=== PATIENT | male | born 1945 | race Caucasian/White ===

== ENCOUNTER 2023-05-21 10:45 | Inpatient (IN) | payer OTHER, MEDICARE ==
[2023-05-21] MEDS ORDERED: ONDANSETRON 4 MG/2 ML VIAL ONE (11:30)
[2023-05-21] MEDS ORDERED: MORPHINE 4 MG/ML SYR ONE (11:30)
[2023-05-21 11:45] LABS: Absolute Eosinophils 0.2 K/uL (0-0.5); Absolute Monocytes 1.4 K/uL (0.1-1.3); Absolute Neutrophil 9.8 K/uL (1.8-8.0); Basophils % 0.3 % (0-1.3); Eosinophils % 1.3 % (0-4.4); Hematocrit 30.7 % (39.6-49.0); Lymphocytes % 8.3 % (15.3-44.8); MCH 31.3 pg (27.0-35.0); MCHC 32.6 g/dL (32.0-36.0); MPV 7.8 fL (7.6-11.3); Monocytes % 10.9 % (3.3-12.3); Neutrophils % 79.2 % (41.7-73.7); Platelets 223 thou/uL (152-406); RBC Red Blood Cell Count 3.19 M/uL (4.33-5.43); Red Cell Distribution Width 16.4 % (12.1-15.2)
[2023-05-21 11:55] LABS: PT Prothrombin Time 12.9 SECONDS (9.5-12.5); Protime INR 1.18
[2023-05-21 12:03] LABS: Albumin/Globulin Ratio 0.9 (1.1-1.8); Anion Gap 11.2 mEq/L (5.0-15.0); Bilirubin Total 0.7 mg/dL (0.2-1.0); Globulin 3.4 g/dL (2.3-3.5); Potassium 4.2 mEq/L (3.5-5.1); Protein, Total 6.4 g/dL (6.4-8.2)
[2023-05-21] MEDS ORDERED: FENTANYL CITR 100 MCG/2 ML ONE (12:30)
[2023-05-21] MEDS ORDERED: NA CHLORIDE 0.9% 1,000 ML ONE (12:31)
--- NOTE | 2023-05-21 13:57 | RAD REPORT ---
EXAM DESCRIPTION: CT - Abdomen Pelvis Wo Contrast - 05/21/2023 12:47 pm CLINICAL HISTORY: back pain, sacral wound COMPARISON: No comparisons TECHNIQUE: Thin cut axial CT imaging of the abdomen and pelvis was performed without IV contrast. Mu ltiplanar reformats were generated and reviewed. All CT scans are performed using dose optimization technique as appropriate and may include automated exposure control or mA/KV adjustment according to patient size. FINDINGS: Elevation of the left hemidiaphragm. Segmental left lower lobe opacification and other sub segmental dependent opacities in the left lingula and right lower lobe, favoring atelectasis. The liver, spleen, and pancreas show no suspicious findings. Gallbladder shows layering sludge and mi ldly hyperdense small stones. Bilateral renal parenchymal atrophic changes, without suspicious parenchymal findings within limits o f noncontrast technique. Vascular calcifications. Parapelvic left upper to interpolar cystic lesion m easuring 3.7 cm. No evidence of radiopaque calculi or hydroureteronephrosis. No dilated bowel loops or bowel wall thickening. No free air, free fluid or inflammatory stranding. N o suspicious mass or bulky lymphadenopathy. Small right inguinal hernia containing fat. The urinary b ladder is without significant finding. No acute bony findings. Endplate compression deformities throughout the lumbar spine and at T11 and T 12, without adjacent soft tissue edema, favored to be chronic. Tortuosity of the upper abdominal aorta. Tubular structures along the posterior margin of the upper a bdominal aorta left of midline above the level of the renal arteries, could relate to postsurgical ch anges. Advanced atherosclerotic calcifications also involving the proximal SMA. IVC filter in place. Mild fat stranding along the gluteal regions bilaterally with mild skin thickening on the right. No a ppreciable soft tissue gas or fluid collections. IMPRESSION: No acute intra-abdominal process. Layering sludge and mildly hyperdense small stones within the gallbladder. Likely chronic compression deformities of T11-L5. Mild fat stranding along the gluteal regions bilaterally of mild skin thickening on the right, may in dicate ongoing cellulitis. No soft tissue gas or appreciable fluid collections. Other incidental findings as above.
--- NOTE | 2023-05-21 14:34 | EDPHYS ---
Physician Documentation [facility] Name: Kamron Bhatti Age: 78 yrs Sex: Male : 1945 Arrival Date: 05/21/2023 Time: 10:45 Bed 2 Private MD: ED Physician Kobe Simmons HPI: 05/20 11:32 This 78 yrs old Male presents to ER via EMS with complaints of wound, back pain. rt 11:32 Patient presents to the ED with a wound to the right buttocks. States that has been in rt an electric chair for about 5 days. States that he has bleeding when he tries to transfer. Also reports back pain. Denies other acute complaints at this time, symptoms are moderate in severity, no other aggravating alleviating factors.. Historical: - Allergies: 11:00 No Known Allergies; nj1 - Immunization history:: Client reports receiving the 2nd dose of the Covid vaccine. - Infectious Disease History:: Denies. - Social history:: Smoking status: Patient denies any tobacco usage or history of. - Family history:: not pertinent. ROS: 11:32 Constitutional: Negative for fever, chills, and weight loss, Cardiovascular: Negative rt for chest pain, palpitations, and edema, Respiratory: Negative for shortness of breath, cough, wheezing, and pleuritic chest pain, Abdomen/GI: Negative for abdominal pain, nausea, vomiting, diarrhea, and constipation, Neuro: Negative for headache, weakness, numbness, tingling, and seizure, 11:32 Back: Positive for pain at rest, pain with movement, 11:32 Skin: Positive for Wound, bleeding, Exam: 11:32 Constitutional: This is a well developed, well nourished patient who is awake, alert, rt and in no acute distress. Head/Face: Normocephalic, atraumatic. Chest/axilla: Normal chest wall appearance and motion. Nontender with no deformity. No lesions are appreciated. Cardiovascular: Regular rate and rhythm with a normal S1 and S2. No gallops, murmurs, or rubs. Normal PMI, no JVD. No pulse deficits. Respiratory: Lungs have equal breath sounds bilaterally, clear to auscultation and percussion. No rales, rhonchi or wheezes noted. No increased work of breathing, no retractions or nasal flaring. Abdomen/GI: Soft, non-tender, with normal bowel sounds. No distension or tympany. No guarding or rebound. No evidence of tenderness throughout. Neuro: Awake and alert, GCS 15, oriented to person, place, time, and situation. Cranial nerves II-XII grossly intact. Motor strength 5/5 in all extremities. Sensory grossly intact. Cerebellar exam normal. Normal gait. 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 11:32 Skin: Stage I-II decubitus wound on the right buttock, correlation noted, scant amount of bleeding. It is erythematous, warm to the touch.. Vital Signs: 10:57 BP 109 / 53; Pulse 63; Resp 18; Temp 97.8(O); Pulse Ox 100% on R/A; Weight 88.9 kg (M); nj1 11:28 Pulse 88; Pulse Ox 100% ; nj1 11:42 BP 96 / 48; Pulse 92; Resp 18; Pulse Ox 100% on R/A; nj1 13:07 BP 116 / 45; Pulse 80; Resp 18; Pulse Ox 100% ; Pain 6/10; nj1 13:08 Pain 6/10; nj1 14:15 BP 124 / 62; Pulse 89; Resp 17; Pulse Ox 98% on R/A; nj1 15:30 BP 122 / 89; Pulse 99; Resp 16; Pulse Ox 98% on R/A; nj1 13:07 Pain Scale: Adult nj1 13:08 Pain Scale: Adult nj1 MDM: 10:51 Patient medically screened. rt 16:09 Differential Diagnosis Cellulitis, abscess, electrolyte disturbance. Data reviewed: rt vital signs, nurses notes, lab test result(s), radiologic studies. Consideration of Admission/Observation Patient was admitted/placed on observation. Management of patient was discussed with the following: Hospitalist: Agrees to admit. I considered the following discharge prescriptions or medication management in the emergency department Medications were administered in the Emergency Department. See MAR. Independent interpretation of the following test(s) in the Emergency Department CT Scan: My interpretation is No abscess seen on my interpretation of CT scan images. Counseling: I had a detailed discussion with the patient and/or guardian regarding the historical points, exam findings, and any diagnostic results supporting the discharge/admit diagnosis, lab results, radiology results, the need for further work-up and treatment in the hospital. Response to treatment: the patient's symptoms have markedly improved after treatment. 05/20 11:04 Order name: Blood Culture Adult (2) rt 05/20 11:04 Order name: CBC with Diff; Complete Time: 12:06 rt 05/20 11:04 Order name: CMP; Complete Time: 12:06 rt 05/20 11:04 Order name: Lactate w/ 2H reflex if indic.; Complete Time: 12:06 rt 05/20 11:04 Order name: Protime (+inr); Complete Time: 12:06 rt 05/20 11:04 Order name: Ptt, Activated; Complete Time: 12:06 rt 05/20 12:10 Order name: Abdomen ; Complete Time: 14:06 EDMS 05/20 11:04 Order name: Accucheck; Complete Time: 12:08 rt 05/20 11:04 Order name: Cardiac monitoring; Complete Time: 11:41 rt 05/20 11:04 Order name: IV Saline Lock - Large Bore; Complete Time: 11:41 rt 05/20 11:04 Order name: Labs collected and sent; Complete Time: 11:41 rt 05/20 11:04 Order name: O2 Per Protocol; Complete Time: 11:27 rt 05/20 11:04 Order name: O2 Sat Monitoring; Complete Time: 11:27 rt 05/20 11:04 Order name: Vital Signs; Complete Time: 11:27 rt Administered Medications: 11:31 Drug: Ondansetron IVP 4 mg IVP once; over 2 minutes Route: IVP; Site: right antecubital;nj1 12:30 Follow up: Response: No adverse reaction nj1 11:33 Drug: morphine IVP or IV 4 mg IVP once over 4 mins Route: IVP; Infused Over: 4 mins; nj1 Site: right antecubital; 12:30 Follow up: Response: No adverse reaction; Pain is unchanged, physician notified nj1 12:35 Drug: fentaNYL (PF) IVP 50 mcg IVP once Route: IVP; Site: right antecubital; nj1 13:08 Follow up: Pain 6/10 Adult; Response: No adverse reaction; Pain is decreased nj1 12:35 Drug: NS 0.9% IV 1000 ml IV at 1 bolus Per protocol; 1000 mL bolus Route: IV; Rate: 1 nj1 bolus; Site: right antecubital; 15:20 Follow up: Response: No adverse reaction; IV Status: Completed infusion; IV Intake: nj1 1000ml 15:15 Drug: vancoMYCIN IVPB 1 grams IVPB once over 2 hrs Route: IVPB; Infused Over: 2 hrs; ss Site: left antecubital; 16:00 Follow up: IV Status: Infusion continued upon admission nj1 15:29 Drug: Miralax PO 17 grams PO once; mix into 4-8 oz. of any hot/cold/room temp. beverage ss and drink immediately Route: PO; 16:00 Follow up: Response: No adverse reaction nj1 Disposition Summary: 05/21/23 14:33 Hospitalization Ordered Notes: Hospitalization Status: Inpatient Admission rt Provider: David Gonzalez rt Location: Telemetry/MedSurg (Inpatient) rt Condition: Stable rt Problem: new rt Symptoms: are unchanged rt Bed/Room Type: Standard rt Room Assignment: 409(05/21/23 16:05) eb Diagnosis - Decubitus ulcer with cellulitis rt - T11, T12 compression fracture rt Forms: - Medication Reconciliation Form rt - SBAR form rt - Leadership Thank You Letter rt Signatures: Dispatcher [employer] EDMS Floresita Desai RN RN ss Tori Thomas Ryan, MD MD rt Anastasia Alberts RN RN nj1 Corrections: (The following items were deleted from the chart) 11:05 11:05 BLOOD CULTURE*+BA.LAB.BRZ ordered. EDMS EDMS 11:05 11:05 CBC+H.LAB.BRZ ordered. EDMS EDMS 11:05 11:05 COMPREHENSIVE METABOLIC PANEL+C.LAB.BRZ ordered. EDMS EDMS 11:05 11:05 LACTATE+C.LAB.BRZ ordered. EDMS EDMS 11:05 11:05 PROTIME (+INR)+COAG.LAB.BRZ ordered. EDMS EDMS 11:05 11:05 PTT, ACTIVATED+COAG.LAB.BRZ ordered. EDMS EDMS 12:10 11:05 Abdomen Pelvis W Con+CT.RAD.BRZ ordered. EDMS EDMS 15:10 14:33 rt eb 16:05 15:10 204 eb eb
--- NOTE | 2023-05-21 14:34 | ER ---
Nurse's Notes [facility] Name: Kamron Bhatti Age: 78 yrs Sex: Male : 1945 Arrival Date: 05/21/2023 Time: 10:45 Bed 2 Private MD: Diagnosis: Decubitus ulcer with cellulitis;T11, T12 compression fracture Presentation: 05/20 10:57 Chief complaint: Patient states: Weakness "have spent the last 5 days in my electrical nj1 chair, I cannot transfer myself". CO back pain, states he has MRI scheduled for monday. Coronavirus screen: Vaccine status: Patient reports receiving the 2nd dose of the covid vaccine. Ebola Screen: Patient denies travel to an Ebola-affected area in the 21 days before illness onset. Initial Sepsis Screen: Does the patient meet any 2 criteria? No. Patient's initial sepsis screen is negative. Does the patient have a suspected source of infection? No. Patient's initial sepsis screen is negative. Risk Assessment: Do you want to hurt yourself or someone else? Patient reports no desire to harm self or others. Onset of symptoms was May 2023. 10:57 Method Of Arrival: EMS: [facility] nj1 10:57 Acuity: MARICRUZ 3 nj1 10:57 Care prior to arrival: IV initiated. 20 GA, in the right antecubital area, Glucose nj1 check: 131. Historical: - Allergies: 11:00 No Known Allergies; nj1 - Immunization history:: Client reports receiving the 2nd dose of the Covid vaccine. - Infectious Disease History:: Denies. - Social history:: Smoking status: Patient denies any tobacco usage or history of. - Family history:: not pertinent. Screenin:00 [facility] ED Fall Risk Assessment (Adult) History of falling in the last 3 months, nj1 including since admission No falls in past 3 months (0 pts) Confusion or Disorientation No (0 pts) Intoxicated or Sedated No (0 pts) Impaired Gait Yes (1 pt) Mobility Assist Device Used Yes (1 pt) Altered Elimination Yes (1 pt) Score/Fall Risk Level 0 - 2 = Low Risk Oriented to surroundings, Maintained a safe environment, Hourly rounding (assess needs \\T\\ fall precautionary measures) done. Abuse screen: Denies threats or abuse. Denies injuries from another. Nutritional screening: No deficits noted. Tuberculosis screening: No symptoms or risk factors identified. Assessment: 11:00 General: Appears in no apparent distress. uncomfortable, Behavior is calm, cooperative, nj1 appropriate for age. 11:00 Pain: Complains of pain in back Pain currently is 10 out of 10 on a pain scale. Neuro: nj1 Level of Consciousness is awake, alert, obeys commands, Oriented to person, place, situation, Reports weakness since 5 days ago. Cardiovascular: Patient's skin is warm and dry. Respiratory: Airway is patent Respiratory effort is even, unlabored. Derm: Skin is dusky, Wound noted right gluteus denise Wound is Abrasion, scratch Decubitus located on bilateral sacrum Buttocks. 12:07 Reassessment: Patient appears in no apparent distress at this time. No changes from [facility] previously documented assessment. Patient and/or family updated on plan of care and expected duration. Pain level reassessed. Patient is alert, oriented x 3, equal unlabored respirations, skin warm/dry/pink. 13:08 Reassessment: Patient appears in no apparent distress at this time. Patient and/or nj1 family updated on plan of care and expected duration. Pain level reassessed. Patient is alert, oriented x 3, equal unlabored respirations, skin warm/dry/pink. 14:15 Reassessment: Patient appears in no apparent distress at this time. Patient and/or nj1 family updated on plan of care and expected duration. Pain level reassessed. Patient is alert, oriented x 3, equal unlabored respirations, skin warm/dry/pink. 15:30 Reassessment: Patient appears in no apparent distress at this time. Patient and/or nj1 family updated on plan of care and expected duration. Pain level reassessed. Patient is alert, oriented x 3, equal unlabored respirations, skin warm/dry/pink. 17:00 Reassessment: press technician reports to myself that patient refused to get shorts off, which nj1 were wet, he also declined a disposable brief when offered, stated that his was going to get him clean shorts. Bed was not wet/soiled per her report prior to taking him upstairs. Vital Signs: 10:57 BP 109 / 53; Pulse 63; Resp 18; Temp 97.8(O); Pulse Ox 100% on R/A; Weight 88.9 kg (M); nj1 11:28 Pulse 88; Pulse Ox 100% ; nj1 11:42 BP 96 / 48; Pulse 92; Resp 18; Pulse Ox 100% on R/A; nj1 13:07 BP 116 / 45; Pulse 80; Resp 18; Pulse Ox 100% ; Pain 6/10; nj1 13:08 Pain 6/10; nj1 14:15 BP 124 / 62; Pulse 89; Resp 17; Pulse Ox 98% on R/A; nj1 15:30 BP 122 / 89; Pulse 99; Resp 16; Pulse Ox 98% on R/A; nj1 13:07 Pain Scale: Adult nj1 13:08 Pain Scale: Adult nj1 ED Course: 10:49 Patient arrived in ED. eb 10:49 Kobe Simmons MD is Attending Physician. rt 11:00 Triage completed. nj1 11:00 Patient has correct armband on for positive identification. Placed in gown. Bed in low [facility] position. Call light in reach. Side rails up X 1. Adult w/ patient. Provided Education on: call light, fall precautions. 11:01 Arm band placed on. nj1 11:21 Anastasia Alberts RN is Primary Nurse. nj1 11:30 Maintain EMS IV. Dressing intact. Good blood return noted. Gauge \\T\\ site: 20 R AC. nj1 11:33 Inserted saline lock: 20 gauge in left antecubital area, using aseptic technique. Blood ss collected. 12:49 Abdomen In Process Unspecified. EDMS 14:31 David Gonzalez MD is Hospitalizing Provider. rt 16:00 No provider procedures requiring assistance completed. nj1 16:00 Patient admitted, IV remains in place. nj1 Administered Medications: 11:31 Drug: Ondansetron IVP 4 mg IVP once; over 2 minutes Route: IVP; Site: right antecubital;nj1 12:30 Follow up: Response: No adverse reaction nj1 11:33 Drug: morphine IVP or IV 4 mg IVP once over 4 mins Route: IVP; Infused Over: 4 mins; nj Site: right antecubital; 12:30 Follow up: Response: No adverse reaction; Pain is unchanged, physician notified nj1 12:35 Drug: fentaNYL (PF) IVP 50 mcg IVP once Route: IVP; Site: right antecubital; nj1 13:08 Follow up: Pain 6/10 Adult; Response: No adverse reaction; Pain is decreased nj1 12:35 Drug: NS 0.9% IV 1000 ml IV at 1 bolus Per protocol; 1000 mL bolus Route: IV; Rate: 1 nj1 bolus; Site: right antecubital; 15:20 Follow up: Response: No adverse reaction; IV Status: Completed infusion; IV Intake: nj1 1000ml 15:15 Drug: vancoMYCIN IVPB 1 grams IVPB once over 2 hrs Route: IVPB; Infused Over: 2 hrs; ss Site: left antecubital; 16:00 Follow up: IV Status: Infusion continued upon admission nj1 15:29 Drug: Miralax PO 17 grams PO once; mix into 4-8 oz. of any hot/cold/room temp. beverage ss and drink immediately Route: PO; 16:00 Follow up: Response: No adverse reaction nj1 Medication: 16:00 VIS not applicable for this client. nj1 Intake: 15:20 IV: 1000ml; Total: 1000ml. nj1 Outcome: 14:33 Decision to Hospitalize by Provider. rt 16:00 Admitted to Med/surg accompanied by tech, via stretcher, room 206, nj1 16:00 Condition: stable nj1 16:00 Instructed on the need for admit, 16:07 Patient left the ED. Signatures: Dispatcher [employer] Floresita Salguero RN RN ss Tori Thomas Ryan, MD MD rt Anastasia Alberts RN RN nj1
[2023-05-21] MEDS ORDERED: VANCOMYCIN 1 GM/VIAL ONE (14:43)
[2023-05-21] MEDS ORDERED: NA CHLORIDE 0.9% 250 ML ONE (14:43)
[2023-05-21] MEDS: POLYETHYL GLY 3350 17 GM/DOSE PO ONE (15:21)
[2023-05-21] MEDS ORDERED: POLYETHYL GLY 3350 17 GM/DOSE ONE (15:22)
--- NOTE | 2023-05-21 16:41 | P.HP ---
Certification for Inpatient Patient admitted to: Inpatient With expected LOS: >2 Midnights Patient will require the following post-hospital care: None Practitioner: I am a practitioner with admitting privileges, knowledge of patient current condition, hospital course, and medical plan of care. 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 Patient reports has been having worsening back pain over the course of the last 1 month and for this reason has been only able to tolerate being in his electric wheelchair for the last 5 days. No red flag back pain symptoms including saddle paresthesias, loss of bowel or bladder continence. As patient has been started sitting his wheelchair for 5 days he has developed a sacral decubitus ulceration with surrounding erythema also noted to have leukocytosis white blood cell count of 12.3 sodium 129 creatinine 2.08. Blood cultures and lactate obtained in the ED, lactate 0.8 Patient be admitted for further evaluation and management of sepsis secondary to infected sacral decubitus ulceration, weakness, back pain - Past Medical/Surgical History -: Bilateral BKA -: Aortic aneurysm with repair -: Hypertension -: Hyperlipidemia -: GERD -: MDS/anemia -: Abdominal aortic aneurysm repair -: 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 with a transfer board. - Family History Family History: Reviewed- Non-Contributory - Social History Alcohol use: No CD- Drugs: No Caffeine use: Yes Place of Residence: Home Review of Systems 10-point ROS is otherwise unremarkable Musculoskeletal: Back Pain Neurological: Weakness Physical Examination - Vital Signs Temperature: 97.8 F Blood Pressure: 116/45 Pulse: 80 Respirations: 18 - Physical Exam General: Alert, In no apparent distress, Oriented x3 HEENT: Atraumatic, PERRLA, EOMI Neck: Supple, 2+ carotid pulse no bruit Respiratory: Clear to auscultation bilaterally, Normal air movement Cardiovascular: Regular rate/rhythm, Normal S1 S2 Gastrointestinal: Normal bowel sounds Musculoskeletal: Other (Bilateral BKA, amputation of most fingers) Integumentary: No rashes Neurological: Normal speech, Normal strength at 5/5 x4 extr, Normal tone - Studies Laboratory Data (last 24 hrs) 05/21/23 05/21/23 05/21/23 11:33 11:33 11:33 WBC 12.30 H Hgb 10.0 L Hct 30.7 L Plt Count 223 PT 12.9 H INR 1.18 APTT 29.0 Sodium 129 L Potassium 4.2 BUN 44 H Creatinine 2.08 H Glucose 101 Total Bilirubin 0.7 AST 14 L ALT 16 Alkaline Phosphatase 79 Assessment and Plan - Plan Assessment: Sepsis secondary to infected sacral decubitus ulceration Back pain Hypertension Hyperlipidemia GERD MDS/anemia History of 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, amputation of most fingers Plan: Sepsis secondary to infected sacral decubitus ulceration Back pain CT shows chronic compression fractures, no red flag symptoms including saddle paresthesia, bowel or bladder incontinence Patient takes Mcnabb at home 7.5 mg, we will increase to 10 mg to take as needed Physical therapy consulted Continue antibioticsvancomycin, cefepime Blood cultures obtained in ED, lactate less than 2 ID consulted Patient takes minocycline 100 mg daily chronically after his amputations of his lower extremities recommended by infectious disease at [facility] Hypertension Hyperlipidemia GERD Home medications continued MDS/anemia Follows with Dr. Morales with hematology Takes Retacrit injections periodically Monitor CBC daily History of 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, amputation of most fingers Significant effects patient's functional status PT consultation to work on transfers, bed mobility DVT PPX: Lovenox Code status: Full Discharge Plan: Home Plan to discharge in: 72 Hours - Advance Directives Does patient have a Living Will: No Does patient have a Durable POA for Healthcare: No - Code Status/Comfort Care Code Status Assessed: Yes (Full code) Critical Care: No Time Spent Managing Pts Care (In Minutes): 70
[2023-05-21 17:58] VITALS: BMI 49.0
[2023-05-21] MEDS: carvediloL 12.5 MG TAB PO SCH (20:00)
[2023-05-21] MEDS: NA CHLORIDE 0.9% 1,000 ML IV SCH (20:00)
[2023-05-21] MEDS: ATORVASTATIN 40 MG TAB PO SCH (20:25)
[2023-05-21] MEDS: HYDROCODONE/APAP 10/325 TAB PO PRN (20:25)
[2023-05-21] MEDS: GABAPENTIN 300 MG CAP PO SCH (20:41)
[2023-05-22] MEDS: MORPHINE 2 MG/ML SYR IV PRN (03:32)
[2023-05-22 03:51] LABS: Absolute Basophils 0.1 K/uL (0-0.5); Absolute Eosinophils 0.2 K/uL (0-0.5); Absolute Lymphocytes (CBC) 1.1 K/uL (0.7-4.9); Absolute Monocytes 1.2 K/uL (0.1-1.3); Absolute Neutrophil 7.9 K/uL (1.8-8.0); Basophils % 0.9 % (0-1.3); Eosinophils % 2.2 % (0-4.4); Hematocrit 29.6 % (39.6-49.0); Hemoglobin 9.9 g/dL (13.6-17.9); Lymphocytes % 10.2 % (15.3-44.8); MCH 32.1 pg (27.0-35.0); MCHC 33.3 g/dL (32.0-36.0); MCV 96.4 fL (80-100); MPV 7.8 fL (7.6-11.3); Monocytes % 11.7 % (3.3-12.3); Nucleated Red Blood Cells % 0.2 % (0-0); Platelets 194 thou/uL (152-406); RBC Red Blood Cell Count 3.07 M/uL (4.33-5.43); Red Cell Distribution Width 16.2 % (12.1-15.2)
[2023-05-22 04:11] LABS: Anion Gap 8.6 mEq/L (5.0-15.0); Magnesium 2.3 mg/dL (1.6-2.4); Potassium 4.6 mEq/L (3.5-5.1)
[2023-05-22] MEDS: PANTOPRAZOLE 40MG TABLET PO SCH (05:13)
[2023-05-22] MEDS: AMLODIPINE 2.5 MG TAB PO SCH (09:00)
[2023-05-22] MEDS: LOSARTAN POTASSIUM 50 MG TABLET PO SCH (09:02)
[2023-05-22] MEDS: MINOCYCLINE HCL 50 MG CAP PO SCH (09:02)
[2023-05-22] MEDS: ASPIRIN EC 81 MG TAB PO SCH (09:02)
[2023-05-22] MEDS: ENOXAPARIN 30 MG/0.3 ML SQ SCH (09:03)
--- NOTE | 2023-05-22 10:21 | P.CNS ---
Date of Consult: 05/22/23 Reason for Consult: sepsis, sacral ulcer infection Chief Complaint: sacral decubitus ulceration, sepsis History of Present Illness: Patient is a 78yo M with a PMH as listed below who presented to the ED with complaints of weakness and back pain. ID consulted for sepsis secondary to suspected infection of buttocks wounds. Blood cultures obtained. patient was started on empiric antibiotic therapy. of note, he has been on daily minocycline PO for the past 10 years. Allergies No Known Allergies Allergy (Unverified 05/21/23 18:01) Home medications list reviewed: Yes Home Medications: Amlodipine [Norvasc*] 2.5 mg PO BEDTIME 05/21/23 Aspirin [Vazalore] 81 mg PO DAILY 05/21/23 Atorvastatin Calcium [Lipitor] 10 mg PO BEDTIME 05/21/23 Carvedilol [Coreg] 12.5 mg PO BID 05/21/23 Epoetin Cornell-Epbx [Retacrit] 40,000 unit IJ PRN 05/21/23 Ferrous Sulfate [Iron] 65 mg PO DAILY 05/21/23 Gabapentin 300 mg PO TID 05/21/23 Hydrocodone/Acetaminophen [Hydrocodon-Acetaminoph 7.5-325] 1 each PO TID PRN 05/21/23 Losartan Potassium 50 mg PO DAILY 05/21/23 Minocycline HCl 100 mg PO DAILY 05/21/23 Omeprazole [Prilosec] 40 mg PO DAILY 05/21/23 Polyethylene Glycol 3350 [Miralax] 17 gm PO DAILY PRN 05/21/23 - Past Medical/Surgical History -: Bilateral BKA -: Aortic aneurysm with repair -: Hypertension -: Hyperlipidemia -: GERD -: MDS/anemia -: Abdominal aortic aneurysm repair -: 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 with a transfer board. - Social History Alcohol use: No CD- Drugs: No Caffeine use: Yes Place of Residence: Home Review of Systems 10-point ROS is otherwise unremarkable General: Weakness Gastrointestinal: Constipation Genitourinary: Other (difficulty starting ) Integumentary: As per HPI Physical Examination Temp Pulse Resp BP Pulse Ox 98.9 F 75 18 120/58 L 94 05/22/23 08:00 05/22/23 09:00 05/22/23 08:00 05/22/23 09:00 05/22/23 08:00 General: Alert, In no apparent distress, Oriented x3 HEENT: Atraumatic, Normocephalic Respiratory: Clear to auscultation bilaterally, Normal air movement, Other (on room air) Cardiovascular: Regular rate/rhythm Gastrointestinal: Normal bowel sounds, Other (round) Musculoskeletal: Other (bilateral BLE amputation) Integumentary: Skin breakdown (buttocks) Laboratory Data - Reviewed Microbiology Data - Reviewed Imagings Data: - Reviewed Conclusions/Impression: Problem List Sepsis secondary to buttocks wound back pain hypertension hyperlipidemia GERD bilateral BKA Hx AAA Sepsis secondary to buttocks pressure injury/cellulitis - Blood cultures 05/20: pending -Afebrile. leukocytosis resolved. - currently on vancomycin - CT abdomen pelvis wo contrast 05/20: "No acute intra-abdominal process. Layering sludge and mildly hyperdense small stones within the gallbladder. Likely chronic compression deformities of T11-L5. Mild fat stranding along the gluteal regions bilaterally of mild skin thickening on the right, may indicate ongoing cellulitis. No soft tissue gas or appreciable fluid collections. Other incidental findings as above." On daily minocycline which was prescribed by his infectious disease doctor from [facility] following bilateral lower extremity amputations. He reports he has been on minocycline daily x 10 years. Recommendations - follow up with blood culture results - Keep buttocks clean and dry. Apply zinc-based barrier cream BID. - Pressure offloading measures - will reevaluate patient tomorrow and consider discontinuation of vancomycin. - constipation: bowel regimen - continue supportive care. pain management per primary team. Case discussed with Bettina Flynn
--- NOTE | 2023-05-22 13:28 | P.PN ---
Date of Service: 05/22/23 Subjective: Still with thoracic back pain no other complaints going for MRI today no acute events overngiht ROS: 10 point ROS as noted above, otherwise negative Physical exam GEN: Alert, oriented, NAD HEENT: Normal conjunctiva, sclera anicteric CV: Regular rate and rhythm, no edema Pulm: Nonlabored respirations on room air ABD: Soft, nontender, nondistended MSK: No joint tenderness Integumentary: No rashes Neuro: Normal speech, normal affect Vitals reviewed Assessment: Sepsis secondary to infected sacral decubitus ulceration Back pain Hypertension Hyperlipidemia GERD MDS/anemia History of 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, amputation of most fingers Plan: Sepsis secondary to infected sacral decubitus ulceration Back pain CT shows chronic compression fractures, no red flag symptoms including saddle paresthesia, bowel or bladder incontinence Patient takes [place] at home 7.5 mg, we will increase to 10 mg to take as needed Physical therapy consulted Continue antibioticsvancomycin Blood cultures obtained in ED, lactate less than 2 ID consulted Patient takes minocycline 100 mg daily chronically after his amputations of his lower extremities recommended by infectious disease at [facility] MRI L-spine, T-spine today Hypertension Hyperlipidemia GERD Home medications continued MDS/anemia Follows with Dr. Morales with hematology Takes Retacrit injections periodically Monitor CBC daily History of 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, amputation of most fingers Significantly effects patient's functional status PT consultation to work on transfers, bed mobility DVT PPX: Lovenox Code status: Full Discharge Plan: Home Plan to discharge in: 72 Hours Time Spent Managing Pts Care (In Minutes): 35 <Manuel Marsh - Last Filed: 05/22/23 13:28> Patient seen and examined on rounds this morning with MARY Marsh. I performed a substantial part of the MDM during this patient's care today as noted above in the plan of care. I agree with plan of care as noted above with the following additions / corrections: uncertain if sacral wound is infected. unable to examine buttocks on rounds this morning due to discomfort and time constraints. pictures in EMR reviewed urinary retention, s/p straight cath x2 increased back pain - thoraco-lumbar denies any new numbnesss/weakness <David Gonzalez - Last Filed: 05/22/23 22:15>
[2023-05-22] MEDS: LORazepam 2 MG/ML VIAL IV ONE (13:31)
[2023-05-22] MEDS ORDERED: HYDROMORPHONE HCL 0.5 MG/0.5 ML INJ IV ONE (14:00)
[2023-05-22] MEDS ORDERED: LACTULOSE 20 GM/30 ML UCUP PO PRN (21:36)
[2023-05-22] MEDS: POLYETHYL GLY 3350 17 GM/DOSE PO PRN (22:02)
[2023-05-23] MEDS ORDERED: VANCOMYCIN 1.5 GM in NA CHLORIDE 0.9% 500 ML IVPB SCH (03:00)
[2023-05-23] MEDS ORDERED: VANCOMYCIN 1 GM in NA CHLORIDE 0.9% 250 ML IVPB SCH ×3 (03:00→16:00)
[2023-05-23 07:05] LABS: Absolute Basophils 0.1 K/uL (0-0.5); Absolute Eosinophils 0.3 K/uL (0-0.5); Absolute Lymphocytes (CBC) 0.8 K/uL (0.7-4.9); Absolute Monocytes 1.1 K/uL (0.1-1.3); Absolute Neutrophil 9.1 K/uL (1.8-8.0); Basophils % 0.5 % (0-1.3); Eosinophils % 2.6 % (0-4.4); Hematocrit 28.8 % (39.6-49.0); Hemoglobin 9.2 g/dL (13.6-17.9); Lymphocytes % 6.8 % (15.3-44.8); MCH 30.6 pg (27.0-35.0); MCHC 31.8 g/dL (32.0-36.0); MCV 96.3 fL (80-100); MPV 8.5 fL (7.6-11.3); Monocytes % 9.9 % (3.3-12.3); Neutrophils % 80.2 % (41.7-73.7); Platelets 203 thou/uL (152-406); RBC Red Blood Cell Count 2.99 M/uL (4.33-5.43); Red Cell Distribution Width 16.3 % (12.1-15.2)
[2023-05-23 08:21] LABS: Anion Gap 7.9 mEq/L (5.0-15.0); Magnesium 2.5 mg/dL (1.6-2.4); Potassium 4.9 mEq/L (3.5-5.1)
--- NOTE | 2023-05-23 09:51 | P.PN ---
Infectious Disease Progress Note Chief Complaint: sacral decubitus ulceration, sepsis Subjective In no apparent distress. + constipation Plan of care discussed with patient and family at bedside. Physical Examination Temp Pulse Resp BP Pulse Ox 96.8 F 73 18 93/43 L 96 05/23/23 08:00 05/23/23 08:36 05/23/23 08:00 05/23/23 08:36 05/23/23 08:00 General: Alert, In no apparent distress, Oriented x3 HEENT: Atraumatic, Normocephalic. corrective lenses. Respiratory: Clear to auscultation bilaterally, Normal air movement, on room air. Cardiovascular: Regular rate/rhythm Gastrointestinal: Normal bowel sounds, round. non-tender. Musculoskeletal: bilateral BLE amputation Integumentary: Skin breakdown buttocks : Srevin catheter Laboratory Data - Reviewed Microbiology Data - Reviewed Imagings Data: - Reviewed Assessment and Plan Problem List Sepsis secondary to buttocks wound back pain CKD hypertension hyperlipidemia GERD bilateral BKA Hx AAA Sepsis secondary to buttocks pressure injury/cellulitis - Blood cultures 05/20: no growth to date -Afebrile. leukocytosis resolved. - currently on vancomycin - CT abdomen pelvis wo contrast 05/20: "No acute intra-abdominal process. Layering sludge and mildly hyperdense small stones within the gallbladder. Likely chronic compression deformities of T11-L5. Mild fat stranding along the gluteal regions bilaterally of mild skin thickening on the right, may indicate ongoing cellulitis. No soft tissue gas or appreciable fluid collections. Other incidental findings as above." On daily minocycline which was prescribed by his infectious disease doctor from [facility] following bilateral lower extremity amputations. He reports he has been on minocycline daily x 10 years. Recommendations - Discontinue vancomycin. Continue with local wound care to buttocks. Continue with patient's home oral minocycline. - Keep buttocks clean and dry. Apply zinc-based barrier cream BID. - Pressure offloading measures. Turn patient q2h, wedge pillows. - constipation: continue bowel regimen - urinary retention: servin catheter placed 05/21. Bladder training, attempt servin removal. - continue supportive care. - physical therapy - Patient to follow up with his infectious disease doctor as outpatient. Case discussed with Bettina Flynn
[2023-05-23] MEDS: VANCOMYCIN 1.25 GM in NA CHLORIDE 0.9% 250 ML IVPB SCH (15:30)
[2023-05-23] MEDS: HYDROMORPHONE HCL 1 MG/ML INJ IV SCH (20:00)
[2023-05-23] MEDS ORDERED: HYDROMORPHONE HCL 1 MG/ML INJ IV ONE (20:00)
[2023-05-23] MEDS: LORazepam 2 MG/ML VIAL IV SCH (20:00)
--- NOTE | 2023-05-23 20:06 | P.PN ---
Date of Service: 05/23/23 Subjective: Awake and sitting up in bed, family in the room Will make an attempt for MRI today ROS: 10 point ROS as noted above, otherwise negative physical exam General: AAOx3, NAD HEENT: Atraumatic, PERRLA, EOMI Neck: Supple, 2+ carotid pulse no bruit Respiratory: Clear to auscultation bilaterally, Normal air movement Cardiovascular: RRR, Normal S1 S2, no murmur noted Gastrointestinal: Normal bowel sounds Musculoskeletal: Other (Bilateral BKA, amputation of most fingers) Integumentary: No rashes, stage 2 sacral decubitus, skin macerated with small amount bleeding, erythema surrounding Neurological: Normal speech, Normal tone Vitals reviewed Assessment: Sepsis secondary to infected sacral decubitus ulceration Back pain Hypertension Hyperlipidemia GERD MDS/anemia History of 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, amputation of most fingers Plan: Sepsis secondary to infected sacral decubitus ulceration Back pain CT shows chronic compression fractures, no red flag symptoms including saddle paresthesia, bowel or bladder incontinence Patient takes [place] at home 7.5 mg, we will increase to 10 mg to take as needed Physical therapy consulted Continue antibioticsvancomycin Blood cultures obtained in ED, lactate less than 2 ID consulted Patient takes minocycline 100 mg daily chronically after his amputations of his lower extremities recommended by infectious disease at [facility] MRI L-spine, T-spine today Hypertension Hyperlipidemia GERD Home medications continued MDS/anemia Follows with Dr. Morales with hematology Takes Retacrit injections periodically Monitor CBC daily History of 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, amputation of most fingers Significantly effects patient's functional status PT consultation to work on transfers, bed mobility DVT PPX: Lovenox Code status: Full Discharge Plan: Home
[2023-05-24 07:15] LABS: Absolute Basophils 0.1 K/uL (0-0.5); Absolute Eosinophils 0.4 K/uL (0-0.5); Absolute Monocytes 0.8 K/uL (0.1-1.3); Absolute Neutrophil 5.6 K/uL (1.8-8.0); Basophils % 0.8 % (0-1.3); Eosinophils % 4.5 % (0-4.4); Hematocrit 28.9 % (39.6-49.0); Hemoglobin 9.5 g/dL (13.6-17.9); Lymphocytes % 12.4 % (15.3-44.8); MCH 31.5 pg (27.0-35.0); MCHC 32.8 g/dL (32.0-36.0); MPV 7.7 fL (7.6-11.3); Monocytes % 10.2 % (3.3-12.3); Neutrophils % 72.1 % (41.7-73.7); Nucleated Red Blood Cells % 0.1 % (0-0); Platelets 222 thou/uL (152-406); RBC Red Blood Cell Count 3.01 M/uL (4.33-5.43); Red Cell Distribution Width 16.3 % (12.1-15.2)
[2023-05-24 07:18] LABS: Anion Gap 8.9 mEq/L (5.0-15.0); Magnesium 2.4 mg/dL (1.6-2.4); Potassium 4.9 mEq/L (3.5-5.1)
[2023-05-24] MEDS: ALBUTEROL 2.5 MG/3 ML NEB SOL NEB ONE ×2 (09:00→14:35)
[2023-05-24] MEDS: POTASSIUM CL SA 10 MEQ TAB PO ONE (09:00)
[2023-05-24] MEDS: PANTOPRAZOLE 40MG TABLET PO SCH (09:25)
--- NOTE | 2023-05-24 09:59 | P.PN ---
Infectious Disease Progress Note Subjective: Improving. In no apparent distress. + constipation + back pain No other or worsening complaints. Physical Examination Temp Pulse Resp BP Pulse Ox 97.1 F 67 15 103/52 L 100 05/24/23 08:00 05/24/23 09:00 05/24/23 08:00 05/24/23 09:00 05/24/23 08:00 General: Alert, In no apparent distress, Oriented x3 HEENT: Atraumatic, Normocephalic. corrective lenses. Respiratory: Clear to auscultation bilaterally, Normal air movement, on room air. Cardiovascular: Regular rate/rhythm Gastrointestinal: Normal bowel sounds, round. non-tender. Musculoskeletal: bilateral BLE amputation. Multiple fingers amputated bilateral hands. Integumentary: Skin breakdown buttocks : Quarles catheter Laboratory Data - Reviewed Microbiology Data - Reviewed Imagings Data: - Reviewed Assessment and Plan Problem List Sepsis secondary to buttocks wound back pain CKD hypertension hyperlipidemia GERD bilateral BKA Hx AAA Sepsis secondary to buttocks pressure injury/cellulitis - Blood cultures 05/20: no growth to date -Afebrile. leukocytosis resolved. - currently on vancomycin - CT abdomen pelvis wo contrast 05/20: "No acute intra-abdominal process. Layering sludge and mildly hyperdense small stones within the gallbladder. Likely chronic compression deformities of T11-L5. Mild fat stranding along the gluteal regions bilaterally of mild skin thickening on the right, may indicate ongoing cellulitis. No soft tissue gas or appreciable fluid collections. Other incidental findings as above." --On daily minocycline which was prescribed by his infectious disease doctor from [facility] following bilateral lower extremity amputations. He reports he has been on minocycline daily x 10 years Recommendations - Continue with patient's home oral minocycline. Consider discontinuation of Vancomycin IV. - Continue with local wound care to buttocks. - Keep buttocks clean and dry. Apply zinc-based barrier cream BID. - Pressure offloading measures. Turn patient q2h, wedge pillows. - constipation: aggressive bowel regimen. - continue supportive care. - physical therapy - Patient to follow up with his infectious disease doctor as outpatient. Case discussed with Ashley Flynn.
[2023-05-24] MEDS: BENZONATATE 100 MG CAP PO PRN (10:09)
[2023-05-24] MEDS: LORazepam 2 MG/ML VIAL IV SCH (10:52)
[2023-05-24] MEDS: HYDROMORPHONE HCL 1 MG/ML INJ IV SCH (10:53)
--- NOTE | 2023-05-24 13:41 | RAD REPORT ---
EXAM DESCRIPTION: MRI - Lumbar Spine Wo Con - 05/24/2023 11:48 am CLINICAL HISTORY: Worsening back pain, leukocytosis, worsening weak COMPARISON: Abdomen Pelvis Wo Contrast dated 05/21/2023 TECHNIQUE: Multiplanar multisequence MRI of the lumbar spine performed, without intravenous gadolini um contrast. FINDINGS: Preserved lumbar lordosis without spondylolisthesis. Vertebral body heights are well main tained. Multilevel endplate remodeling and Schmorl's node formation. Multilevel facet degenerative ch anges also contribute to the findings below. Modic type marrow degenerative changes, most pronounced along inferior endplate Schmorl's nodes at T12 and L1. No other suspicious marrow signal. No paraspin al masses or edema. Conus terminates at the appropriate level. Cauda equina roots are unremarkable, with no clumping or t hickening. T12-L1: No significant findings. L1-L2 level: Broad-based posterior disc bulge. Minimal bilateral neural foraminal narrowing. Central canal is patent. L2-L3 level: Cuip-zm-ycgefxhp disc height loss with broad-based posterior disc bulge and superimposed small central disc extrusion. Narrowing of the lateral recesses bilaterally, although central canal remains patent. Mild bilateral neural foraminal narrowing. L3-L4 level: Mild broad-based posterior disc bulge. No central canal stenosis. Bilateral srlr-zp-ofwm rate neural foraminal narrowing. L4-L5 level: Mild disc height loss. Broad-based posterior disc bulge with superimposed central and le ft subarticular disc protrusions. No central canal stenosis. Bilateral mkzo-ge-tqktvfja neural forami nal narrowing more so on the right. L5-S1 level: Advanced disc height loss with endplate remodeling broad-based posterior disc bulge. No central canal stenosis. Left moderate to severe and right pucj-cs-hoziomvt neural foraminal narrowing . Evaluation of the included abdominal and retroperitoneal structures reveals tortuosity of the abdomin al aorta, and bilateral renal fluid signal intensity cysts. IMPRESSION: Up to moderate spondylotic lumbar spine changes as detailed above. No high-grade central canal stenosis, although there is bilateral narrowing of the lateral recesses a t L2-3. Variable degrees of neural foraminal narrowing, up to moderate to severe on the left at L5-S1.
--- NOTE | 2023-05-24 13:58 | RAD REPORT ---
EXAM DESCRIPTION: CT - Thoracic Spine W/o Cont - 05/24/2023 11:59 am CLINICAL HISTORY: Worsening back pain, leukocytosis, worsening weak COMPARISON: Lumbar Spine Wo Con dated 05/24/2023; Abdomen Pelvis Wo Contrast dated 05/21/2023 TECHNIQUE: Axial noncontrast CT imaging of the thoracic spine was performed with coronal and sagitta l re-formatted images. All CT scans are performed using dose optimization technique as appropriate and may include automated exposure control or mA/KV adjustment according to patient size. FINDINGS: Inferior endplate compression fracture at T5 with mild comminution anteriorly. Mild prever tebral soft tissue swelling. Other endplate compression deformities at T7, T8, and T11, favored to be chronic. No lytic changes, focal suspicious marrow pattern, or malalignment. No paraspinal abscess or hematoma seen. Intervertebral disc disease assessment is inherently limited by CT. Within these limitations, no high -grade canal stenosis suspected. Multilevel endplate remodeling and facet arthropathy. Siip-ox-luent ate degrees of neural foraminal narrowing at multiple levels. Evaluation of the intrathoracic structures reveals mildly progressive dependent airspace opacities an d air bronchogram on the left. Interval development of small left pleural effusion. Mild aneurysmal d ilation of the ascending thoracic aorta, up to 4.2 cm in caliber. IMPRESSION: Mildly comminuted inferior endplate compression fracture at T5, likely of acute/recent c hronology. Other endplate compression deformities at T7, T8, and T11, favored to be chronic. Multilevel degenerative changes as above. Mildly progressive dependent airspace opacities particularly on the left with development of a small left pleural effusion. Findings may relate to atelectasis or pneumonia. Mild aneurysmal dilation of the ascending thoracic aorta up to 4.2 cm in caliber.
--- NOTE | 2023-05-24 15:32 | P.PN ---
Date of Service: 05/24/23 Subjective: Oriented this morning Family at bedside Attempted MRI today, due to physical limitations needed to change test to a CT Complaining of cough ROS: 10 point ROS as noted above, otherwise negative physical exam General: Uncomfortable, NAD, AAOx3 HEENT: Atraumatic, PERRLA, EOMI Neck: Supple, 2+ carotid pulse no bruit Respiratory: Clear to auscultation bilaterally, symmetrical chest wall movement, RA Cardiovascular: Regular rate and rhythm, S1 S2 present, no murmur noted Gastrointestinal: Normoactive bowel sounds Musculoskeletal: Other (Bilateral BKA, amputation of most fingers) Integumentary: No rashes, stage 2 sacral decubitus, skin macerated with small amount bleeding, erythema surrounding Neurological: Normal speech, Normal tone Vitals reviewed Assessment: Sepsis secondary to infected sacral decubitus ulceration Compression fracture at T5 Back pain Hypertension Hyperlipidemia GERD MDS/anemia History of 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, amputation of most fingers Plan: Sepsis secondary to infected sacral decubitus ulceration Compression fracture at T5 Back pain -CT shows chronic compression fractures, no red flag symptoms including saddle paresthesia, bowel or bladder incontinence -Patient takes [place] at home 7.5 mg, we will increase to 10 mg to take as needed -Physical therapy consulted -Stopped vancomycin 05/22, continue with home dose minocycline -Patient takes minocycline 100 mg daily chronically after his amputations of his lower extremities recommended by infectious disease at [facility] -Blood cultures obtained in ED, lactate less than 2 -ID consulted, Dr. Serrano to manage sacral wound -MRI L-spine, T-spine- unable to perform d/t physical limitations -CT T-spine reports "Mildly comminuted inferior endplate compression fracture at T5, likely of acute/recent chronology. Other endplate compression deformities at T7, T8, and T11, favored to be chronic. Multilevel degenerative changes as above. Mildly progressive dependent airspace opacities particularly on the left with development of a small left pleural effusion. Findings may relate to atelectasis or pneumonia. Mild aneurysmal dilation of the ascending thoracic aorta up to 4.2 cm in caliber." Hypertension Hyperlipidemia GERD -Home medications continued MDS/anemia -Follows with Dr. Morales with hematology -Takes Retacrit injections periodically prescribed by Dr. Morales, H/H 9.5/28.9 (05/23) -Monitor CBC daily History of 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, amputation of most fingers -Significantly effects patient's functional status -PT consultation to work on transfers, bed mobility DVT PPX: Lovenox Code status: Full Discharge Plan: Home <Shante Preston - Last Filed: 05/24/23 15:16> Patient seen and examined with Ms. Preston. Patient complaining of mid back pain, worse with cough. He also coughed up purulent sputum. No recorded fever. Family also reported 5 days of constipation. Diagnosis Acute T5 compression fracture Chronic T7, T8 and T11 compression fractures. Pneumonia Functional constipation Myelodysplastic syndrome. Stage III sacral decubitus ulcer Bilateral stage III gluteal decubitus ulcers Plan: CT thorax result discussed with Dr. Mario-spine surgery. Dr. Mario recommended pain management and PT and follow-up with him in the office as outpatient. Noted patient has anemia. He has a history of myelodysplastic syndrome. Patient stated patient is supposed to get Procrit injection whenever his hemoglobin falls below 10. Patient hemoglobin is 9.5 today CBC discussed with Dr. Morales who recommended Procrit injection which is ordered. Continue analgesics, continue PT. Started IV Zosyn for pneumonia. Pressure ulcer precautions. Patient stated for inpatient rehab placement. <jose juarez - Last Filed: 05/24/23 18:18>
[2023-05-24] MEDS: MINERAL OIL 30 ML UCUP PO ONE (17:16)
[2023-05-25] MEDS: PIPER TAZO 3.375 GM in NA CHLORIDE 0.9% 100 ML IV SCH (00:46)
--- NOTE | 2023-05-25 06:29 | P.PN ---
Date of Service: 05/25/23 Subjective: ROS: 10 point ROS as noted above, otherwise negative physical exam General: Uncomfortable, NAD, AAOx3 HEENT: Atraumatic, PERRLA, EOMI Neck: Supple, 2+ carotid pulse no bruit Respiratory: Clear to auscultation bilaterally, symmetrical chest wall movement, RA Cardiovascular: Regular rate and rhythm, S1 S2 present, no murmur noted Gastrointestinal: Normoactive bowel sounds Musculoskeletal: Other (Bilateral BKA, amputation of most fingers) Integumentary: No rashes, stage 2 sacral decubitus, skin macerated with small amount bleeding, erythema surrounding Neurological: Normal speech, Normal tone Vitals reviewed Assessment: Sepsis secondary to infected sacral decubitus ulceration Compression fracture at T5 Back pain Hypertension Hyperlipidemia GERD MDS/anemia History of 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, amputation of most fingers Plan: Sepsis secondary to infected sacral decubitus ulceration Compression fracture at T5 Back pain -CT shows chronic compression fractures, no red flag symptoms including saddle paresthesia, bowel or bladder incontinence -Patient takes [place] at home 7.5 mg, we will increase to 10 mg to take as needed -Physical therapy consulted -Stopped vancomycin 05/22, continue with home dose minocycline -Patient takes minocycline 100 mg daily chronically after his amputations of his lower extremities recommended by infectious disease at [facility] -Blood cultures obtained in ED, lactate less than 2 -ID consulted, Dr. Serrano to manage sacral wound -MRI L-spine, T-spine- unable to perform d/t physical limitations -CT T-spine reports "Mildly comminuted inferior endplate compression fracture at T5, likely of acute/recent chronology. Other endplate compression deformities at T7, T8, and T11, favored to be chronic. Multilevel degenerative changes as above. Mildly progressive dependent airspace opacities particularly on the left with development of a small left pleural effusion. Findings may relate to atelectasis or pneumonia. Mild aneurysmal dilation of the ascending thoracic aorta up to 4.2 cm in caliber." Hypertension Hyperlipidemia GERD -Home medications continued MDS/anemia -Follows with Dr. Morales with hematology -Takes Retacrit injections periodically prescribed by Dr. Morales, H/H 9.5/28.9 (05/23) -Monitor CBC daily History of abdominal aortic aneurysm repair with complications resulting in juice ateral BKA, amputation of most fingers -Significantly effects patient's functional status -PT consultation to work on transfers, bed mobility DVT PPX: Lovenox Code status: Full Discharge Plan: Home <Shante Preston - Last Filed: 05/25/23 06:23> Patient seen and examined with Yulia Mohan. Plan of care discussed with Ms. Preston. Patient report back pain with coughing and according to the family he is trying to limit coughing as possible. He reports no BM for about 5 days. On examination, patient has obese abdomen, normal bowel sounds, Hb 10.5 Pneumonia Acute T5 compression fracture Plan: Continue IV Zosyn, chest physiotherapy. Analgesics as needed Continue PT Social service evaluating for inpatient rehab. <jose juarez - Last Filed: 05/25/23 16:03>
[2023-05-25 07:30] LABS: Absolute Basophils 0.1 K/uL (0-0.5); Absolute Eosinophils 0.2 K/uL (0-0.5); Absolute Lymphocytes (CBC) 0.4 K/uL (0.7-4.9); Absolute Monocytes 0.6 K/uL (0.1-1.3); Absolute Neutrophil 9.6 K/uL (1.8-8.0); Basophils % 0.6 % (0-1.3); Hematocrit 32.1 % (39.6-49.0); Hemoglobin 10.5 g/dL (13.6-17.9); Lymphocytes % 3.7 % (15.3-44.8); MCH 31.5 pg (27.0-35.0); MCHC 32.8 g/dL (32.0-36.0); MCV 95.9 fL (80-100); MPV 7.7 fL (7.6-11.3); Monocytes % 5.7 % (3.3-12.3); Nucleated Red Blood Cells % 0.1 % (0-0); Platelets 250 thou/uL (152-406); RBC Red Blood Cell Count 3.34 M/uL (4.33-5.43); Red Cell Distribution Width 16.5 % (12.1-15.2)
[2023-05-25 07:44] LABS: Anion Gap 8.9 mEq/L (5.0-15.0); Magnesium 2.3 mg/dL (1.6-2.4); Potassium 4.9 mEq/L (3.5-5.1)
--- NOTE | 2023-05-25 09:11 | P.PN ---
Infectious Disease Progress Note Subjective: Improving. In no apparent distress. + back pain + productive cough + buttocks pain Plan of care discussed with patient and family at bedside. Physical Examination Temp Pulse Resp BP Pulse Ox 97.7 F 85 24 H 130/61 94 05/25/23 04:00 05/25/23 06:20 05/25/23 07:58 05/25/23 06:20 05/25/23 07:58 General: Alert, In no apparent distress, Oriented x3 HEENT: Atraumatic, Normocephalic. corrective lenses. Respiratory: Coarse crackles. Normal air movement, on room air. Cardiovascular: Regular rate/rhythm Gastrointestinal: Normal bowel sounds. Soft, nontender, nondistended. Musculoskeletal: bilateral BLE amputation. Multiple fingers amputated bilateral hands. Integumentary: Skin breakdown buttocks : Quarles catheter Laboratory Data - Reviewed Microbiology Data - Reviewed Imagings Data: - Reviewed Assessment and Plan Problem List Sepsis secondary to buttocks wound back pain CKD hypertension hyperlipidemia GERD bilateral BKA Hx AAA Sepsis secondary to buttocks pressure injury/cellulitis - Blood cultures 05/20: no growth to date -Afebrile. leukocytosis resolved. - currently on vancomycin - CT abdomen pelvis wo contrast 05/20: "No acute intra-abdominal process. Layering sludge and mildly hyperdense small stones within the gallbladder. Likely chronic compression deformities of T11-L5. Mild fat stranding along the gluteal regions bilaterally of mild skin thickening on the right, may indicate ongoing cellulitis. No soft tissue gas or appreciable fluid collections. Other incidental findings as above." --On daily minocycline which was prescribed by his infectious disease doctor from [facility] following bilateral lower extremity amputations. He reports he has be en on minocycline daily x 10 years Coarse crackles, cough, concern for pneumonia - started on zosyn 05/24 Recommendations - Continue with patient's home oral minocycline. - Continue with local wound care to buttocks. - Keep buttocks clean and dry. Apply zinc-based barrier cream BID. - Pressure offloading measures. Turn patient q2h, wedge pillows. - constipation: aggressive bowel regimen. - continue supportive care. - physical therapy - pain management per primary Case discussed with Bettina Flynn
[2023-05-25 09:33] LABS: Blood Morphology Comment NOT SEEN (NOT SEEN); Platelet Estimate ADEQ; White Blood Cell Scan OK (OK)
[2023-05-25] MEDS: ALBUTEROL 2.5 MG/3 ML NEB SOL NEB SCH (09:45)
[2023-05-25] MEDS: MINERAL OIL 30 ML UCUP PO ONE (12:16)
[2023-05-25] MEDS: LIDOCAINE 4% PATCH TOP SCH (13:39)
[2023-05-26 03:25] LABS: Absolute Basophils 0.1 K/uL (0-0.5); Absolute Eosinophils 0.3 K/uL (0-0.5); Absolute Lymphocytes (CBC) 0.6 K/uL (0.7-4.9); Absolute Monocytes 0.7 K/uL (0.1-1.3); Absolute Neutrophil 5.5 K/uL (1.8-8.0); Basophils % 1.1 % (0-1.3); Hematocrit 28.2 % (39.6-49.0); Hemoglobin 9.5 g/dL (13.6-17.9); Lymphocytes % 8.9 % (15.3-44.8); MCH 31.9 pg (27.0-35.0); MCHC 33.7 g/dL (32.0-36.0); MCV 94.6 fL (80-100); MPV 7.6 fL (7.6-11.3); Monocytes % 9.5 % (3.3-12.3); Neutrophils % 76.5 % (41.7-73.7); Platelets 219 thou/uL (152-406); RBC Red Blood Cell Count 2.98 M/uL (4.33-5.43); Red Cell Distribution Width 16.4 % (12.1-15.2)
[2023-05-26 03:38] LABS: Anion Gap 6.8 mEq/L (5.0-15.0); Magnesium 2.2 mg/dL (1.6-2.4); Potassium 4.8 mEq/L (3.5-5.1)
--- NOTE | 2023-05-26 07:17 | P.PN ---
Date of Service: 05/26/23 Subjective: Awake, sitting up in bed Cough has decreased no new complaints ROS: 10 point ROS as noted above, otherwise negative physical exam General: no acute distress, AAOx3, conversing well HEENT: Atraumatic, PERRLA, EOMI Neck: Supple, 2+ carotid pulse no bruit Respiratory: symmetrical chest wall movement, bilaterally clear breath sounds, onRA Cardiovascular: normal S1 S2 present, Regular rate and rhythm, no murmur noted Gastrointestinal: Normoactive bowel sounds, distended, nontender Musculoskeletal: Other (Bilateral BKA, amputation of most fingers) Integumentary: No rashes, stage 2 sacral decubitus, skin macerated with small amount bleeding, erythema surrounding Neurological: Normal speech, Normal tone Vitals reviewed Assessment: Sepsis secondary to infected sacral decubitus ulceration Compression fracture at T5 Back pain Hypertension Hyperlipidemia GERD MDS/anemia History of 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, amputation of most fingers Plan: Sepsis secondary to infected sacral decubitus ulceration Compression fracture at T5 Back pain -CT shows chronic compression fractures, no red flag symptoms including saddle paresthesia, bowel or bladder incontinence -Patient takes [place] at home 7.5 mg, we will increase to 10 mg to take as needed -Physical therapy consulted -Stopped vancomycin 05/22, continue with home dose minocycline -Patient takes minocycline 100 mg daily chronically after his amputations of his lower extremities recommended by infectious disease at [facility] -Blood cultures obtained in ED, lactate less than 2 -ID consulted, Dr. Serrano to manage sacral wound -MRI L-spine, T-spine- unable to perform d/t physical limitations -CT T-spine reports "Mildly comminuted inferior endplate compression fracture at T5, likely of acute/recent chronology. Other endplate compression deformities at T7, T8, and T11, favored to be chronic. Multilevel degenerative changes as above. Mildly progressive dependent airspace opacities particularly on the left with development of a small left pleural effusion. Findings may relate to atelectasis or pneumonia. Mild aneurysmal dilation of the ascending thoracic aorta up to 4.2 cm in caliber." Pneumonia -IV Zosyn -Levaquin PO at discharge -Incentive spirometer -Chest physiotherapy Hypertension Hyperlipidemia GERD -Home medications continued MDS/anemia -Follows with Dr. Morales with hematology -Takes Retacrit injections periodically prescribed by Dr. 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
--- NOTE | 2023-05-26 08:47 | P.PN ---
Infectious Disease Progress Note Subjective: Improving. + constipation, no BM since 05/16. + back pain (chronic) In no apparent distress. Pending transfer to [facility]. Physical Examination Temp Pulse Resp BP Pulse Ox 97.6 F 81 20 117/57 L 97 05/26/23 04:00 05/26/23 05:06 05/26/23 04:00 05/26/23 05:06 05/26/23 04:00 General: Alert, In no apparent distress, Oriented x3 HEENT: Atraumatic, Normocephalic. corrective lenses. Respiratory: Coarse crackles. Normal air movement, on room air. Cardiovascular: Regular rate/rhythm Gastrointestinal: Normal bowel sounds. Soft, nontender, nondistended. Musculoskeletal: bilateral BLE amputation. Multiple fingers amputated bilateral hands. Integumentary: Skin breakdown buttocks : Quarles catheter Laboratory Data - Reviewed Microbiology Data - Reviewed Imagings Data: - Reviewed Assessment and Plan Problem List Sepsis secondary to buttocks wound back pain CKD hypertension hyperlipidemia GERD bilateral BKA Hx AAA Sepsis secondary to buttocks pressure injury/cellulitis - Blood cultures 05/20: no growth to date -Afebrile. leukocytosis resolved. - currently on vancomycin - CT abdomen pelvis wo contrast 05/20: "No acute intra-abdominal process. Layering sludge and mildly hyperdense small stones within the gallbladder. Likely chronic compression deformities of T11-L5. Mild fat stranding along the gluteal regions bilaterally of mild skin thickening on the right, may indicate ongoing cellulitis. No soft tissue gas or appreciable fluid collections. Other incidental findings as above." --On daily minocycline which was prescribed by his infectious disease doctor from [facility] following bilateral lower extremity amputations. He reports he has been on minocycline daily x 10 years concern for pneumonia - started on zosyn 05/24 - nebulizer treatments - incentive spirometry Constipation - No BM recorded since 05/16 - passing flatus - PRN glycolax, lactulose - Received glycolax 05/21 & 05/22; mineral oil 05/23 & 05/24 Recommendations - patient is only daily oral minocycline. Given kidney function, recommend switch oral doxycycline. - Continue with local wound care to buttocks. - Keep buttocks clean and dry. Apply zinc-based barrier cream BID. - Pressure offloading measures. Turn patient q2h, wedge pillows. - constipation: aggressive bowel regimen. - Pneumonia: Continue antibiotic therapy x 5-7 days. Consider switch to Levaquin PO upon discharge to complete remainder of antibiotic course. - continue supportive care. - physical therapy - pain management per primary Case discussed with Bettina Flynn
[2023-05-26 16:45] VITALS: O2SAT 99
[2023-05-26] MEDS: BISACODYL 10 MG RECTAL SUPP PR ONE (17:28)
[2023-05-27] MEDS: NA CHLORIDE 0.9% 100 ML ONE (00:15)
[2023-05-27 03:32] LABS: Absolute Basophils 0.1 K/uL (0-0.5); Absolute Eosinophils 0.4 K/uL (0-0.5); Absolute Lymphocytes (CBC) 0.7 K/uL (0.7-4.9); Absolute Monocytes 0.8 K/uL (0.1-1.3); Absolute Neutrophil 4.9 K/uL (1.8-8.0); Basophils % 1.2 % (0-1.3); Eosinophils % 5.2 % (0-4.4); Hematocrit 28.9 % (39.6-49.0); Hemoglobin 9.5 g/dL (13.6-17.9); Lymphocytes % 9.7 % (15.3-44.8); MCH 31.2 pg (27.0-35.0); MCHC 33.1 g/dL (32.0-36.0); MCV 94.4 fL (80-100); MPV 7.7 fL (7.6-11.3); Monocytes % 11.9 % (3.3-12.3); Nucleated Red Blood Cells % 0.2 % (0-0); Platelets 218 thou/uL (152-406); RBC Red Blood Cell Count 3.06 M/uL (4.33-5.43); Red Cell Distribution Width 16.6 % (12.1-15.2)
[2023-05-27 03:50] LABS: Anion Gap 7.5 mEq/L (5.0-15.0); Magnesium 2.1 mg/dL (1.6-2.4); Potassium 4.5 mEq/L (3.5-5.1)
[2023-05-27 09:14] VITALS: BP 154/72; TEMP 97.2
[2023-05-27] MEDS: BISMUTH SUBSALICYL 262MG/15ML-240 ML BTL PO ONE (10:30)
--- NOTE | 2023-05-27 15:17 | P.DS ---
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 Patient reports has been having worsening back pain over the course of the last 1 month and for this reason has been only able to tolerate being in his electric wheelchair for the last 5 days. No red flag back pain symptoms including saddle paresthesias, loss of bowel or bladder continence. As patient has been started sitting his wheelchair for 5 days he has developed a sacral decubitus ulceration with surrounding erythema also noted to have leukocytosis white blood cell count of 12.3 sodium 129 creatinine 2.08. Blood cultures and lactate obtained in the ED, lactate 0.8 Patient be admitted for further evaluation and management of sepsis secondary to infected sacral decubitus ulceration, weakness, back pain Hospital Course: Kamron Bhatti is a pleasant 78 year old male with a past medical history s ignificant for CKD, hypertension, chronic pain, previous bilateral BKA's, amputations most was fingers, history of abdominal aortic aneurysm repair in 2013 with complications who was admitted to the [facility] on 05/21/23 for infected sacral decubitus ulceration, weakness, and back pain. Kamron Bhatti presented to the ED with chief complaint of weakness and back pain. Thoracic CT revealed "new inferior endplate compression fracture at T5 with mild comminution anteriorly. Other endplate compression deformities at T7, T8, and T11, favored to be chronic." Consulted Dr. Mario who recommends pain control and physical therapy during the healing process. During this admission, Small left pleural effusion likely representing pneumonia was found and treatment began with zosyn IV. On discharge, continued treatment with Levaquin PO for seven days is recommended. Continued care for wounds to the buttock. Improvement is noted to kidney function BUN/creatinine 36/1.78. He is tolerating p.o. diet, Quarles catheter in place, and hemodynamically stable for discharge. On 05/27/23, Kamron was seen on morning rounds and deemed medically stable for discharge. Kamron was discharged to inpatient rehab at [facility] with instructions to schedule follow-up appointments with PCP, Dr. Serrano, and councilor. Kamron was provided prescriptions for Lidocaine patch and levaquin. The patient and family members were given the opportunity to ask questions and reported no further questions. Furthermore, all questions were answered to the best of my ability. A copy of this discharge summary will be sent to the above providers to facilitate continuity of care. Physical exam General: Awake, AAOx3, NAD, conversing well HEENT: Atraumatic, PERRLA, EOMI Neck: Supple, 2+ carotid pulse no bruit Respiratory: symmetrical chest wall movement, bilaterally clear breath sounds, on RA Cardiovascular: S1 S2 present, RRR, no murmur noted Gastrointestinal: Normoactive bowel sounds, distended, nontender Musculoskeletal: Other (Bilateral BKA, amputation of most fingers) Integumentary: No rashes, stage 2 sacral decubitus, skin macerated with small amount bleeding, erythema surrounding Neurological: Normal speech, Normal tone Vital Signs/Physical Exam: Temp Pulse Resp BP Pulse Ox 97.2 F 88 16 154/72 H 100 05/27/23 08:00 05/27/23 08:00 05/27/23 10:33 05/27/23 08:00 05/27/23 10:33 Laboratory Data at Discharge: WBC 6.80 thou/uL (4.3-10.9) 05/27/23 02:57 Hgb 9.5 g/dL (13.6-17.9) L 05/27/23 02:57 Hct 28.9 % (39.6-49.0) L 05/27/23 02:57 Plt Count 218 thou/uL (152-406) 05/27/23 02:57 PT 12.9 SECONDS (9.5-12.5) H 05/21/23 11:33 INR 1.18 05/21/23 11:33 APTT 29.0 SECONDS (24.3-36.9) 05/21/23 11:33 Sodium 138 mEq/L (136-145) 05/27/23 02:57 Potassium 4.5 mEq/L (3.5-5.1) 05/27/23 02:57 BUN 36 mg/dL (7-18) H 05/27/23 02:57 Creatinine 1.78 mg/dL (0.70-1.30) H 05/27/23 02:57 Glucose 99 mg/dL (74-106) 05/27/23 02:57 Magnesium 2.1 mg/dL (1.6-2.4) 05/27/23 02:57 Total Bilirubin 0.7 mg/dL (0.2-1.0) 05/21/23 11:33 AST 14 U/L (15-37) L 05/21/23 11:33 ALT 16 U/L (16-61) 05/21/23 11:33 Alkaline Phosphatase 79 U/L (45-117) 05/21/23 11:33 Home Medications: Amlodipine [Norvasc*] 2.5 mg PO BEDTIME 05/21/23 Aspirin [Vaz[place]] 81 mg PO DAILY 05/21/23 Carvedilol [Coreg] 12.5 mg PO BID 05/21/23 Epoetin Cornell-Epbx [Retacrit] 40,000 unit IJ PRN 05/21/23 Ferrous Sulfate [Iron] 65 mg PO DAILY 05/21/23 Gabapentin 300 mg PO TID 05/21/23 Hydrocodone/Acetaminophen [Hydrocodone-Acetamin 7.5-325] 1 each PO TID PRN 05/21/23 Losartan Potassium 50 mg PO DAILY 05/21/23 Minocycline HCl 100 mg PO DAILY 05/21/23 Omeprazole [Prilosec] 40 mg PO DAILY 05/21/23 Polyethylene Glycol 3350 [Miralax] 17 gm PO DAILY PRN 05/21/23 Atorvastatin Calcium [Lipitor] 40 mg PO BEDTIME tab 05/27/23 Benzonatate [Tessalon Perle*] 200 mg PO TID PRN cap 05/27/23 Levofloxacin [Levaquin] 500 mg PO DAILY #7 tab 05/27/23 Lidocaine [Dermacinrx Lidocan] 1 each TP DAILY 15 Days #15 pat 05/27/23 carvediloL [Coreg*] 12.5 mg PO BID 6AM 6PM tab 04/20/24 New Medications: Lidocaine [Dermacinrx Lidocan] 1 each TP DAILY 15 Days #15 pat Levofloxacin [Levaquin] 500 mg PO DAILY #7 tab Physician Discharge Instructions: Kamron Bhatti presented to the ED with chief complaint of weakness and back pain. Thoracic CT revealed "new inferior endplate compression fracture at T5 with mild comminution anteriorly. Other endplate compression deformities at T7, T8, and T11, favored to be chronic." Consulted Dr. Mario who recommends pain control and physical therapy during the healing process. During this admission, Small left pleural effusion likely representing pneumonia was found and treatment began with zosyn IV. On discharge, continued treatment with Levaquin PO for seven days is recommended. Continued care for wounds to the buttock. Improvement is noted to kidney function BUN/creatinine 36/1.78. 1. Please call and schedule a follow-up appointment with your PCP in 3-5 days - Please follow-up with your PCP for medication refills/adjustments 2. Please call and schedule a follow-up appointment with Nephrology in one week 3. Please call and schedule an appointment with Dr. Serrano for further wound care of the sacral wounds 4. Continue Renal diet 5. Fall risk, work with Physical therapy 6. Return to the ED if symptoms worsen New medications Levaquin 500 mg BID for seven days Diet: Renal Activity: Fall precautions Followup: Juan Galvan MD [Primary Care Provider] -
== END 2023-05-27 11:47 | DRG 871 ==
LOC: ER 10:45 → 2ND 15:03 → 4TH 16:06
PROVIDERS: ADMIT Hospitalist; ATTEND Internal Medicine
DX: A41.9 Sepsis, unspecified organism (principal); J18.9 Pneumonia, unspecified organism; L89.323 Pressure ulcer of left buttock, stage 3; L89.313 Pressure ulcer of right buttock, stage 3; L89.153 Pressure ulcer of sacral region, stage 3; S22.9XXA Fracture of bony thorax, part unspecified, initial encounter for closed fracture; L03.317 Cellulitis of buttock; E87.1 Hypo-osmolality and hyponatremia; E78.5 Hyperlipidemia, unspecified; D46.9 Myelodysplastic syndrome, unspecified; I12.9 Hypertensive chronic kidney disease with stage 1 through stage 4 chronic kidney disease, or unspecified chronic kidney disease; N18.30 Chronic kidney disease, stage 3 unspecified; K59.04 Chronic idiopathic constipation; K21.9 Gastro-esophageal reflux disease without esophagitis; R33.9 Retention of urine, unspecified; Z79.82 Long term (current) use of aspirin; Z79.02 Long term (current) use of antithrombotics/antiplatelets; Z89.512 Acquired absence of left leg below knee; Z89.511 Acquired absence of right leg below knee; Z89.029 Acquired absence of unspecified finger(s); Z79.899 Other long term (current) drug therapy
CPT/HCPCS: 36415; 72128; 72148; 74176; 80048; 80053; 80202; 83605; 83735; 85025; 85610; 85730; 87040; 94010; 94640; 96361; 96365; 96375; 97110; 97161; 97530; 97760; 99285; J1170; J1650; J2001; J2270; J2405; J2543; J3010; J7030; J7040; J7050; J7613; Q5106